=== PATIENT | male | born 1980 | race Caucasian/White ===

== ENCOUNTER 2018-01-23 18:19 | Emergency (ER) | payer OTHER ==
[2018-01-23 18:52] VITALS: BP 125/87
--- NOTE | 2018-01-23 19:27 | UC ---
Complaint Male HPI - HPI Summary HPI Summary: C/O blood in semen this morning. Has not been sexually active in > 2 years. - History of Current Complaint Chief Complaint: UCGeneralIllness Stated Complaint: PERSONAL Time Seen by Provider: 01/23/18 19:19 Hx Obtained From: Patient Onset/Duration: Sudden Onset - this morning Timing: Intermittent Pain Intensity: 0 Location: Penis Aggravating Factor(s): Other - ejaculation Alleviating Factor(s): Nothing Associated Signs And Symptoms: Positive: Blood in Stool - ? this am. Has had it in past ? hemorrhoids.. Negative: Dysuria, Penile Swelling, Penile Discharge - Allergies/Home Medications Allergies/Adverse Reactions: Allergies Allergy/AdvReac Type Severity Reaction Status Date / Time No Known Allergies Allergy Verified 01/23/18 18:42 PMH/Surg Hx/FS Hx/Imm Hx Previously Healthy: Yes - Surgical History Surgical History: Yes Surgery Procedure, Year, and Place: spleen emolized - Family History Known Family History: Positive: Cardiac Disease, Hypertension Negative: Diabetes - Social History Occupation: Employed Part-time Lives: With Family Alcohol Use: Occasionally Substance Use Type: None Smoking Status (MU): Heavy Every Day Tobacco Smoker Type: Cigarettes Amount Used/How Often: 1/2 PPD Cessation Counseling: Patient Advised to Stop Review of Systems Genitourinary: Other - hematospermia Is Patient Immunocompromised?: No All Other Systems Reviewed And Are Negative: Yes Physical Exam Triage Information Reviewed: Yes Appearance: Well-Appearing, No Pain Distress, Well-Nourished Vital Signs: Initial Vital Signs Temp 98.7 F 01/23/18 18:42 Pulse 70 01/23/18 18:42 Resp 18 01/23/18 18:42 BP 125/87 01/23/18 18:42 Pulse Ox 99 01/23/18 18:42 Vital Signs Reviewed: Yes Eyes: Positive: Conjunctiva Clear ENT: Positive: Pharynx normal, TMs normal Neck exam: Normal Respiratory Exam: Normal Cardiovascular Exam: Normal Abdomen Description: Positive: Nontender, No Organomegaly, Soft Bowel Sounds: Positive: Present Male Genital Exam: Positive: Normal Genitalia Musculoskeletal Exam: Normal Neurological Exam: Normal Psychological Exam: Normal Skin Exam: Normal Complaint Male Course/Dx - Differential Dx/Diagnosis Differential Diagnosis/HQI/PQRI: Epididymitis, Prostatitis, Urinary Tract Infection Provider Diagnoses: Hematospermia Discharge - Sign-Out/Discharge Documenting (check all that apply): Discharge/Admit/Transfer - Discharge Plan Condition: Stable Disposition: HOME Prescriptions: Sulfamethox/Trimethoprim DS* [Bactrim DS 800/160 TAB*] 1 tab PO BID #20 tab Patient Education Materials: Sulfamethoxazole/Trimethoprim (By mouth) Referrals: Non Staff,Doctor [Primary Care Provider] - Additional Instructions: Hematospermia is defined as blood in the semen. While often perceived as having little significance, blood in the ejaculate can cause great concern to the men who experience it. The condition is common, with many episodes going unnoticed; therefore, the prevalence of hematospermia remains unknown. If it returns you might want to see a urologist to make sure that nothing is wrong. Smoking Cessation Tricks. 1. Cut down by 1 cigarette per day every 2-3 days. Write the number of smokes for that day on the calendar. 2. Identify triggers to smoking: after meals, on the phone, in the car, with coffee, on breaks at work, etc. 3. Formulate a plan with a behavior to replace the smoking. Fireballs in the car , doodle pad on the phone, flavored creamer for the coffee, go for a walk after a meal or on break at work. 4. For stress smokes do deep breathing relaxation. Breath deep in through the nose hold the breath in for a few seconds then breath out slowly through the mouth. - Billing Disposition and Condition Condition: STABLE Disposition: HOME
[2018-01-23] MEDS ORDERED: Sulfamethox/Trimethoprim DS 800/160* TAB PO ONE (19:36)
== END 2018-01-23 19:50 | disposition home or self-care (01) ==
LOC: UCCORT 18:19
DX: R36.1 Hematospermia (principal); F17.210 Nicotine dependence, cigarettes, uncomplicated
CPT/HCPCS: 81003; 99202; A9270-GY; G0463